=== PATIENT | female | born 1965 | race Caucasian/White ===

== ENCOUNTER 2020-05-23 21:18 | Emergency (ER) | payer OTHER ==
[~2020-05-23] VITALS: Ht 167 cm; Wt 72.0 kg
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
[2020-05-23 21:54] LABS: BASOPHILS % (AUTO) 0 % (0-10); EOSINOPHILS # (AUTO) 0.1 10^3/uL (0.0-0.3); EOSINOPHILS % (AUTO) 1 % (0-10); HEMATOCRIT 43 % (35-52); LYMPHOCYTES # (AUTO) 2.8 10^3/uL (1.0-4.0); LYMPHOCYTES % (AUTO) 24 % (12-44); MEAN CORPUSCULAR HEMOGLOBIN 31 pg (25-34); MEAN CORPUSCULAR HGB CONC 33 g/dL (32-36); MEAN CORPUSCULAR VOLUME 95 fL (80-99); MEAN PLATELET VOLUME 10.5 fL (9.0-12.2); MONOCYTES # (AUTO) 0.7 10^3/uL (0.0-1.0); MONOCYTES % (AUTO) 6 % (0-12); NEUTROPHILS # (AUTO) 7.8 10^3/uL (1.8-7.8); NEUTROPHILS % (AUTO) 68 % (42-75); PLATELET COUNT 267 10^3/uL (130-400); WHITE BLOOD COUNT 11.5 10^3/uL (4.3-11.0)
[2020-05-23] MEDS ORDERED: PANTOPRAZOLE 40 MG (PROTONIX) VIAL IV ONE (22:00)
[2020-05-23] MEDS ORDERED: LACTATED RINGERS 1,000 ML IV ONE (22:00)
[2020-05-23] MEDS ORDERED: fentaNYL INJECTION 100 MCG/2 ML AMP IVP ONE (22:00)
[2020-05-23 22:03] LABS: BILIRUBIN,URINE NEGATIVE (NEGATIVE); COLOR,URINE YELLOW; GLUCOSE, URINE (UA) NEGATIVE (NEGATIVE); KETONES,URINE 1+ (NEGATIVE); LEUKOCYTE ESTERASE ,URINE NEGATIVE (NEGATIVE); NITRITE,URINE NEGATIVE (NEGATIVE); PROTEIN,URINE NEGATIVE (NEGATIVE)
[2020-05-23 22:10] LABS: AMORPHOUS SEDIMENT,UR MOD AMOR PHOSPHATE /LPF; BACTERIA,URINE TRACE /HPF; CLARITY,URINE SL CLOUDY; RBC,URINE RARE /HPF; SQUAMOUS EPITHELIAL CELL,UR 0-2 /HPF; WBC,URINE RARE /HPF
[2020-05-23 22:13] LABS: AMPHETAMINE SCREEN, URINE NEGATIVE (NEGATIVE); BARBITURATE SCREEN URINE NEGATIVE (NEGATIVE); BENZODIAZEPINES SCREEN URINE NEGATIVE (NEGATIVE); CANNABINOID SCREEN, URINE POSITIVE (NEGATIVE); COCAINE SCREEN URINE NEGATIVE (NEGATIVE); METHADONE STAT NEGATIVE (NEGATIVE); METHAMPHETAMINE SCREEN URINE S NEGATIVE (NEGATIVE); OPIATE SCREEN URINE NEGATIVE (NEGATIVE); OXYCODONE STAT NEGATIVE (NEGATIVE); PROPOXYPHENE STAT NEGATIVE (NEGATIVE); TRICYCLIC ANTIDEPRESSANTS SCRE NEGATIVE (NEGATIVE)
[2020-05-23 22:14] LABS: ALBUMIN 4.3 GM/DL (3.2-4.5); BILIRUBIN,TOTAL 0.5 MG/DL (0.1-1.0); CALCIUM 9.8 MG/DL (8.5-10.1); CREATININE SERUM 1.66 MG/DL (0.60-1.30); POTASSIUM 3.8 MMOL/L (3.6-5.0); TOTAL PROTEIN 7.8 GM/DL (6.4-8.2)
[2020-05-23] MEDS ORDERED: OMEP40CA27 PO (23:41)
[2020-05-23] MEDS ORDERED: RX-HYDROCODONE/APAP 5/325 MG #4 TAB PK PO PRN (23:45)
[2020-05-23 23:56] VITALS: BP 126/85
--- NOTE | 2020-05-24 07:12 | Diagnostic Imaging Report ---
PROCEDURE: CT abdomen and pelvis without contrast. TECHNIQUE: Multiple contiguous axial images were obtained through the abdomen and pelvis without the use of intravenous contrast. Auto Exposure Controls were utilized during the CT exam to meet ALARA standards for radiation dose reduction. INDICATION: Nausea, vomiting diarrhea No priors. FINDINGS: There are a few scattered colonic diverticuli without features of acute diverticulitis. There is no ileus or bowel obstruction. No pneumatosis or free air. No pericolonic or perienteric edema. No radiopaque urinary tract stones. There is no hydroureteronephrosis. The unopacified pancreas unremarkable. The gallbladder partly contracted. There are scattered low-density hepatic foci present. Their evaluation is limited by the absence of contrast. The larger ones measure cystic density. The aorta is nonaneurysmal. Unopacified urinary bladder unremarkable. The uterus and adnexa unremarkable. No focal inflammatory process. The spleen within normal limits. The adrenals negative. IMPRESSION: Noninflamed diverticulosis, probable hepatic cyst. No obstructive features, inflammatory process or acute abnormalities are identified. Dictated by: Dictated on workstation # [id number]
== END 2020-05-24 00:02 | disposition home or self-care (01) ==
LOC: ER 21:20
DX: K62.5 Hemorrhage of anus and rectum (principal); R10.30 Lower abdominal pain, unspecified; F41.9 Anxiety disorder, unspecified; F17.210 Nicotine dependence, cigarettes, uncomplicated; Z88.0 Allergy status to penicillin
CPT/HCPCS: 36415; 74176; 80053; 80306; 81000; 83690; 85025

== ENCOUNTER 2020-05-29 05:36 | Outpatient (RCR) | payer OTHER ==
[~2020-05-29] VITALS: Ht 167.7 cm; Wt 67.7 kg
[~2020-05-29 05:36] MED LIST: OMEP40CA27 PO; RPN.25T PO
== END 2020-05-30 09:31 | disposition home or self-care (01) ==
LOC: PREOP 05:36
PROVIDERS: ATTEND Surgery
DX: Z01.812 Encounter for preprocedural laboratory examination (principal); K59.00 Constipation, unspecified; Z20.828 Contact with and (suspected) exposure to other viral communicable diseases
CPT/HCPCS: 87635

== ENCOUNTER 2020-06-01 21:55 | Emergency (ER) | payer OTHER ==
[~2020-06-01] VITALS: Ht 167 cm; Wt 67.0 kg
[2020-06-01 22:10] LABS: BASOPHILS % (AUTO) 1 % (0-10); EOSINOPHILS # (AUTO) 0.2 10^3/uL (0.0-0.3); EOSINOPHILS % (AUTO) 2 % (0-10); HEMATOCRIT 46 % (35-52); HEMOGLOBIN 15.5 g/dL (11.5-16.0); LYMPHOCYTES % (AUTO) 39 % (12-44); MEAN CORPUSCULAR HEMOGLOBIN 31 pg (25-34); MEAN CORPUSCULAR HGB CONC 34 g/dL (32-36); MEAN CORPUSCULAR VOLUME 92 fL (80-99); MONOCYTES # (AUTO) 0.5 10^3/uL (0.0-1.0); MONOCYTES % (AUTO) 7 % (0-12); NEUTROPHILS # (AUTO) 3.9 10^3/uL (1.8-7.8); NEUTROPHILS % (AUTO) 51 % (42-75); PLATELET COUNT 252 10^3/uL (130-400); WHITE BLOOD COUNT 7.6 10^3/uL (4.3-11.0)
[2020-06-01] MEDS ORDERED: HYOSCYAMINE 0.125 MG (LEVSIN) TAB SL ONE (22:15)
[2020-06-01] MEDS ORDERED: LACTATED RINGERS 1,000 ML IV ONE (22:15)
[2020-06-01] MEDS ORDERED: PANTOPRAZOLE 40 MG (PROTONIX) VIAL IV ONE (22:15)
[2020-06-01] MEDS ORDERED: ONDANSETRON 4 MG/2 ML (SDV) Z0FRAN IVP ONE (22:15)
[2020-06-01 22:18] LABS: ALBUMIN 4.7 GM/DL (3.2-4.5); CHLORIDE 106 MMOL/L (98-107); POTASSIUM 3.7 MMOL/L (3.6-5.0); SODIUM 140 MMOL/L (135-145)
[2020-06-01 22:21] LABS: GLUCOSE 120 MG/DL (70-105); TOTAL PROTEIN 8.4 GM/DL (6.4-8.2)
[2020-06-01 22:22] LABS: BILIRUBIN,TOTAL 0.6 MG/DL (0.1-1.0); CARBON DIOXIDE 21 MMOL/L (21-32)
[2020-06-01 22:24] LABS: ALKALINE PHOSPHATASE 97 U/L (40-136)
[2020-06-01 22:25] LABS: CREATININE SERUM 0.94 MG/DL (0.60-1.30); GFR ESTIMATED > 60
[2020-06-01 22:26] LABS: BUN/CREATININE RATIO 14
[2020-06-01 22:27] LABS: BILIRUBIN,URINE NEGATIVE (NEGATIVE); CLARITY,URINE CLEAR; COLOR,URINE YELLOW; GLUCOSE, URINE (UA) NEGATIVE (NEGATIVE); KETONES,URINE NEGATIVE (NEGATIVE); LEUKOCYTE ESTERASE ,URINE NEGATIVE (NEGATIVE); NITRITE,URINE NEGATIVE (NEGATIVE); PH,URINE 5.5 (5-9); PROTEIN,URINE NEGATIVE (NEGATIVE)
[2020-06-01 22:27] LABS: ALANINE AMINOTRANSFERASE 8 U/L (0-55)
[2020-06-01 22:32] LABS: ACETAMINOPHEN < 10 UG/ML (10-30)
[2020-06-01 22:35] LABS: BACTERIA,URINE NEGATIVE /HPF; RBC,URINE RARE /HPF; RENAL EPITHELIAL CELLS,URINE RARE /HPF; SQUAMOUS EPITHELIAL CELL,UR RARE /HPF
[2020-06-01 22:39] LABS: AMPHETAMINE SCREEN, URINE NEGATIVE (NEGATIVE); BARBITURATE SCREEN URINE NEGATIVE (NEGATIVE); BENZODIAZEPINES SCREEN URINE NEGATIVE (NEGATIVE); CANNABINOID SCREEN, URINE POSITIVE (NEGATIVE); COCAINE SCREEN URINE NEGATIVE (NEGATIVE); METHADONE STAT NEGATIVE (NEGATIVE); METHAMPHETAMINE SCREEN URINE S NEGATIVE (NEGATIVE); OPIATE SCREEN URINE NEGATIVE (NEGATIVE); OXYCODONE STAT NEGATIVE (NEGATIVE); PROPOXYPHENE STAT NEGATIVE (NEGATIVE); TRICYCLIC ANTIDEPRESSANTS SCRE NEGATIVE (NEGATIVE)
[2020-06-01 22:46] LABS: AMYLASE 56 U/L (25-125); LIPASE 14 U/L (8-78)
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
[2020-06-01] MEDS ORDERED: KETOROLAC 30 MG/ML VIAL IVP ONE (23:00)
[2020-06-01] MEDS ORDERED: RX-DICYCLOMINE 10 MG (BENTYL) CAP PPK#4 PO STA (23:06)
[2020-06-01] MEDS ORDERED: RX-HYOSCYAMINE 0.125 MG SL (LEVSIN) PPK#6 SL STA (23:06)
[2020-06-01] MEDS ORDERED: RX-ONDANSETRON 4 MG ODT (ZOFRAN) PPK #4 PO STA (23:06)
[2020-06-01 23:26] VITALS: BP 120/79
[2020-06-01] MEDS ORDERED: DICYCLOMINE 10 MG (BENTYL) CAP PO SCH (23:30)
--- NOTE | 2020-06-02 07:48 | Diagnostic Imaging Report ---
INDICATION: Abdominal pain COMPARISON: CT dated May 23, 2020 TECHNIQUE: 3 radiographs of the abdomen and chest dated June 01, 2020 FINDINGS: The cardiac silhouette and pulmonary vasculature are within normal limits. The lungs are clear. No pleural effusion. No pneumothorax. Post surgical changes within the cervical spine are partially visualized. No acute osseous abnormality within the chest. No dilated loops of bowel are visualized. However, multiple air-fluid levels are noted overlying the right abdomen. No free air. No suspicious calcifications overlying the renal shadows. [place] left curvature of the thoracolumbar spine. No acute osseous abnormality. IMPRESSION: Multiple air-fluid levels within the right abdomen without dilated loops of bowel. This is nonspecific and may simply relate to gas within haustral folds within the colon. However, string of leanna sign related to small bowel obstruction should be considered. Therefore, if there remains clinical concern for underlying bowel obstruction, then further evaluation with a CT of the abdomen and pelvis would be recommended. Report was FAXED/called to [facility] ER by wendy at 7:48AM. Dictated by: Dictated on workstation # [id number]
== END 2020-06-01 23:20 | disposition home or self-care (01) ==
LOC: EDUNIT# 21:55 → ER 21:56
DX: R10.9 Unspecified abdominal pain (principal); F12.90 Cannabis use, unspecified, uncomplicated; K21.9 Gastro-esophageal reflux disease without esophagitis; Z85.05 Personal history of malignant neoplasm of liver; Z87.891 Personal history of nicotine dependence; Z88.0 Allergy status to penicillin
CPT/HCPCS: 51701; 74022; 80053; 80306; 81000; 82150; 83690; 83735; 84703; 85025; 99284; G0480 ×2; 36415; 80320; 80329

== ENCOUNTER 2020-06-02 08:17 | Day surgery (SDC) | payer OTHER ==
[~2020-06-02] VITALS: Ht 167.7 cm; Wt 67.7 kg
[2020-06-02] MEDS ORDERED: LACTATED RINGERS 1,000 ML IV STA (08:25)
[2020-06-02] MEDS ORDERED: LACTATED RINGERS 1,000 ML IV ONE (08:38)
[2020-06-02 09:00] VITALS: BP 111/86
[2020-06-02] MEDS ORDERED: PROPOFOL INJECTION 50 ML IV ONE (10:16)
[2020-06-02] MEDS ORDERED: MIDAZOLAM 2 MG/2 ML (VERSED) VIAL ONE (10:16)
--- NOTE | 2020-06-02 10:19 | Progress Note-Pre Operative ---
Pre-Operative Progress Note H&P Reviewed The H&P was reviewed, patient examined and no changes noted. Time Seen by Provider: 10:16 Date H&P Reviewed: Jun 02, 2020 Time H&P Reviewed: 10:14 Pre-Operative Diagnosis: Rectal bleed CONNOR ESCOBEDO DO Jun 02, 2020 10:19
[2020-06-02 10:55] VITALS: BP 101/66
[2020-06-02 11:00] VITALS: BP 107/69
[2020-06-02 11:05] VITALS: BP 94/58
--- NOTE | 2020-06-02 11:08 | Progress Note-Post Operative ---
Post-Operative Progess Note Surgeon (s)/Molding Sander (s) Surgeon CONNOR ESCOBEDO DO Molding Sander: none Pre-Operative Diagnosis Rectal bleed Post-Operative Diagnosis Colitis Diverticula Internal hemorrhoids Anal fissure Procedure & Operative Findings Date of Procedure 06/02/20 Procedure Performed/Findings Colon with hot bx Anesthesia Type IV sedation by ASPHALT SPREADER Estimated Blood Loss Estimated blood loss (mL): scant Specimens/Packing Specimens Removed asc colon bx CONNOR ESCOBEDO DO Jun 02, 2020 11:08
--- NOTE | 2020-06-02 11:09 | Endoscopy Discharge Instruct ---
Endo Procedure/Findings Findings 1.: Colitis 2.: Diverticulosis 3.: Internal Hemorrhoids 4.: Other Findings (anal fissure) Discharge Instructions - Activity: You might feel a little sleepy until tomorrow. This is due to the medicine you received to relax you. Until tomorrow, you should: NOT drive a car, operate machinery or power tools. NOT drink any alcoholic beverages. NOT make any important decisions or sign importortant papers. Do not return to work until tomorrow, unless otherwise instructed. Resume previous activities tomorrow. Diet: Start by taking liquids. If you tolerate liquids, advance to solid food. 1.: Colonscopy in 10 years Notify Physician - If you experience excessive bleeding, unusual abdominal pain, fever, or chest pain, contact your doctor immediately. CONNOR ESCOBEDO DO Jun 02, 2020 11:08
[2020-06-02 11:35] VITALS: BP 107/69
--- NOTE | 2020-06-02 12:35 | Anesthesia-General Post-Op ---
MAC Patient Condition Mental Status/LOC: Same as Preop Cardiovascular: Satisfactory Nausea/Vomiting: Absent Respiratory: Satisfactory Pain: Controlled Complications: Absent Post Op Complications Complications None Follow Up Care/Instructions Patient Instructions None needed. Anesthesiology Discharge Order Discharge Order Patient is doing well, no complaints, stable vital signs, no apparent adverse anesthesia problems. No complications reported per nursing. PATRICIA MESA CRNA Jun 02, 2020 12:35
--- NOTE | 2020-06-02 22:21 | OPERATIVE REPORT ---
DATE OF SERVICE: 06/02/2020 PREOPERATIVE DIAGNOSES: Rectal bleed, abdominal pain. POSTOPERATIVE DIAGNOSES: What appeared to be mild colitis, diverticula, anal fissure and internal hemorrhoids. PROCEDURE: Colonoscopy with hot biopsy. SURGEON: Vitaliy Donahue DO STAFF TRAINER: None. ANESTHESIA: IV sedation by the DATA ANALYSIS INTERN. SPECIMEN: Biopsy from the ascending colon looked like a small ulceration. BLOOD LOSS: Scant. FLUIDS: Per anesthesia. POSTOPERATIVE CONDITION: Stable. INDICATION FOR PROCEDURE: The patient is a 55-year-old female who has been having severe abdominal pain, has gone to the emergency room twice because of this and had some rectal bleeding, needed a workup. FINDINGS: The patient had a lot of diverticula in the sigmoid colon. In the ascending colon, saw what looked like small ulcerations, took a picture and did a biopsy, also had some internal hemorrhoids and an anal fissure. PROCEDURE NOTE: After informed consent was obtained, the patient was brought to the endoscopy suite, placed in bed in left lateral decubitus position. She was administered IV sedation by the DATA ANALYSIS INTERN who then monitored her vitals the entire time, heart rate, blood pressure and pulse ox. Scope was inserted, pushed all the way to the cecum. On the way in, noted diverticula, took a picture and the cecum, took a picture of appendiceal orifice, noted the ileocecal valve and then slowly withdrew the scope insufflating to look circumferentially at the connolly, looking the cecum and up into the ascending colon, saw small little ulcers, took a picture of this and then did a biopsy. A hot biopsy of one of these, so that did not bleed and then continued up to the hepatic flexure, then down the transverse colon, the splenic flexure, into the descending colon into the sigmoid, saw again the small diverticula and then down into the rectum, retroflexed in rectal vault, saw some internal hemorrhoids and then while removing the scope, everted the anus and saw what looked like an anal fissure. Attempted to take a picture of this and removed the scope. The patient tolerated the procedure, recovered in endoscopy suite. Job ID: [id number] DocumentID: [id number] Dictated Date: 06/02/2020 15:45:59 Metal Framer Date: 06/02/2020 22:20:57 Dictated By: VITALIY DONAHUE DO
== END 2020-06-02 11:35 | disposition home or self-care (01) ==
LOC: ENDO 08:17
PROVIDERS: ATTEND Surgery
DX: K52.9 Noninfective gastroenteritis and colitis, unspecified (principal); K62.5 Hemorrhage of anus and rectum; K57.30 Diverticulosis of large intestine without perforation or abscess without bleeding; K60.2 Anal fissure, unspecified; K21.9 Gastro-esophageal reflux disease without esophagitis; F41.9 Anxiety disorder, unspecified; F17.210 Nicotine dependence, cigarettes, uncomplicated; Z90.710 Acquired absence of both cervix and uterus; Z86.73 Personal history of transient ischemic attack (TIA), and cerebral infarction without residual deficits; Z88.0 Allergy status to penicillin; Z80.3 Family history of malignant neoplasm of breast; Z80.9 Family history of malignant neoplasm, unspecified
CPT/HCPCS: 88305